=== PATIENT | female | born 1965 | race Caucasian/White ===

== ENCOUNTER 2020-10-16 08:47 | Emergency (ER) | payer OTHER ==
[~2020-10-16] VITALS: Ht 165.1 cm; Wt 61.7 kg
[2020-10-16] MEDS ORDERED: SINGULAIR 10 MG10 MG PO (09:08)
[2020-10-16] MEDS ORDERED: PROAIR HFA8.5 GM INH (09:08)
[2020-10-16] MEDS ORDERED: LISINOPRIL10 MG PO (09:08)
[2020-10-16] MEDS ORDERED: HYDROCODON-ACE1 EAC7 PO (09:10)
[2020-10-16] MEDS ORDERED: FLEXERIL PO (09:10)
[2020-10-16 11:18] VITALS: BP 134/68
== END 2020-10-16 11:19 | disposition home or self-care (01) ==
LOC: M.ERS 08:47
DX: G89.29 Other chronic pain (principal); M54.5 Low back pain; I10 Essential (primary) hypertension; J45.909 Unspecified asthma, uncomplicated